=== PATIENT | female | born 1995 | race Caucasian/White ===

== ENCOUNTER → 2016-08-26 | Outpatient (CLI) | payer OTHER ==
[~2016-08-26] MED LIST: PERCOCET 325 MG1 TA2 PO; PRENATAL FORMU1 EAC3 PO; ZOFRAN 4MG T4 MG/TAB PO
== END ==
LOC: COL.LAB 13:48
DX: Z32.00 Encounter for pregnancy test, result unknown (principal)

== ENCOUNTER → 2016-10-04 | Outpatient (CLI) | payer OTHER | LOC: COL.LAB 16:47 | DX: Z32.00 Encounter for pregnancy test, result unknown (principal) ==